=== PATIENT | male | born 2000 | race Caucasian/White ===

== ENCOUNTER 2024-05-23 21:59 | Observation (INO) | payer OTHER, SELFPAY ==
[2024-05-23 22:02] VITALS: BP 145/95; PULSE 83; RESP 16; TEMP 36.1; O2SAT 100; BMI 33.2
--- NOTE | 2024-05-23 22:14 | ED.GENADULT ---
HPI - General Adult General Chief complaint: Abdominal Pain Stated complaint: abdominal pain Time Seen by Provider: 05/23/24 22:07 Source: patient Mode of arrival: ambulatory Limitations: no limitations History of Present Illness HPI narrative: 24-year-old male presenting today with abdominal pain this been going on for 1 week. Patient states that the pain is central on the abdomen and sometimes he feels pain in the left flank. The pain generally comes and goes, his best 1st thing in the morning and gets worse as the day goes on. He is able to eat, eating does make it a bit more uncomfortable. He states that for the last few days he has had loose stools. He states that it occurs once per day but if he ?really tries to then he can have up to 5 bowel movements per day. Urinating normally. He denies any vomiting but has felt nauseated on and off. He denies any fevers or chills. He states that a few years ago he was diagnosed with either colitis or Crohn's, he can not quite remember which 1 it was. He states that he was having abdominal pain at the time and he had a capsule endoscopy and colonoscopy before the diagnosis was made. He denies any blood in his stools. He denies any blood in his urine. Patient does not take any medications. He had a breast surgery for enlarged breast tissue in the past. Patient is very vague about how much he drinks, but states that he drinks approximately 4 times per month. Related Data Allergies Allergy/AdvReac Type Severity Reaction Status Date / Time No Known Drug Allergies Allergy Verified 05/23/24 22:05 Review of Systems Status of ROS: Reports: 10 or more systems reviewed and unremarkable except as noted in History and below Exam Narrative: Exam Narrative: Well-nourished well-developed patient in no acute distress. Alert and oriented. Answers questions appropriately. Mood and affect are appropriate. Thoughts are goal oriented and rational. No tangential or magical thinking noted. Patient speaks in full sentences without needing to catch their breath. HEENT: Normocephalic atraumatic. Pupils are equally round reactive to light. Extraocular muscles are intact. Conjunctivae are moist without any icterus noted. Moist mucous membranes. Posterior pharynx is normal. Neck is soft. Cardiovascular: Heart is regular rate and rhythm S1 and S2 are present without any murmurs. Lungs: Clear to auscultation bilaterally no wheezes rhonchi or rales are appreciated. Patient takes deep breaths without any discomfort. Abdomen: Firm. Patient has a very hard time relaxing his abdominal wall. He has normal bowel sounds. He has a negative Ponce sign. He has no suprapubic discomfort. He has generalized discomfort between the umbilicus in the epigastric region. Extremities: Bilateral lower extremities are without edema. Skin: Well perfused without any obvious rashes. Const: Vital Signs, click to edit/add: Vital Signs - 24 hr 05/23/24 22:02 Temperature 97.0 F L Pulse Rate [Left P ulse Oximeter] 83 Respiratory Rate 16 Blood Pressure [Ri ght Upper Arm] 145/95 H Pulse Oximetry 100 Oxygen Delivery Me thod Room Air Course Course ED Course: Differential diagnoses is broad at this point. Will proceed with blood work. CBC is unremarkable. Chemistries are unremarkable. LFTs are normal. CRP minimally elevated at 2.3. Lipase is elevated at 14 77. UA is normal. Discussed with patient that he has pancreatitis. Will start IVF and admitted for further management. Vital Signs Vital signs: Initial Vital Signs Temperature 97.0 F L 05/23/24 22:02 Temperature Source Temporal Artery Scan 05/23/24 22:02 Pulse Rate 83 05/23/24 22:02 Pulse Rhythm Regular 05/23/24 22:02 Respiratory Rate 16 05/23/24 22:02 Blood Pressure 145/95 H 05/23/24 22:02 Blood Pressure Mean 111 H 05/23/24 22:02 Blood Pressure Position Sitting 05/23/24 22:02 Pulse Oximetry 100 05/23/24 22:02 Oxygen Delivery Method Room Air 05/23/24 22:02 Vital Signs Temperature 97.0 F L 05/23/24 22:02 Pulse Rate 83 05/23/24 22:02 Respiratory Rate 16 05/23/24 22:02 Blood Pressure 145/95 H 05/23/24 22:02 Pulse Oximetry 100 05/23/24 22:02 Oxygen Delivery Method Room Air 05/23/24 22:02 Temperature 97.0 F L 05/23/24 22:02 Pulse Rate 83 05/23/24 22:02 Respiratory Rate 16 05/23/24 22:02 Blood Pressure 145/95 H 05/23/24 22:02 Pulse Oximetry 100 05/23/24 22:02 Oxygen Delivery Method Room Air 05/23/24 22:02 Medical Decision Making MDM Narrative Medical decision making narrative: 24-year-old male with pancreatitis. Will admit for further management. Lab Data Lab results reviewed: Yes I reviewed the patient's lab results Labs: Lab Results 05/23/24 05/23/24 Range/Units 22:22 22:30 WBC 9.84 (4.50-11.00) K/uL RBC 4.52 (4.30-5.90) m/uL Hgb 13.5 (13.5-17.5) gm/dL Hct 40.9 (37.0-53.0) % MCV 91 (80-100) fL MCH 30 (26-34) pg MCHC 33 (32-36) gm/dL RDW Coeff of Agus 12.2 (11.5-15.5) % Plt Count 341 (140-440) K/uL Neut % (Auto) 52.5 (42.0-72.0) % Lymph % (Auto) 30.7 (20-44) % [place] % (Auto) 12.9 H (0.0-11.0) % Eos % (Auto) 3.0 (0.0-7.0) % Baso % (Auto) 0.5 (0.0-3.0) % Neut # (Auto) 5.16 (1.7-7.0) K/uL Lymph # (Auto) 3.02 H (0.90-2.90) K/uL [place] # (Auto) 1.30 H (0.00-0.90) K/UL Eos # (Auto) 0.30 (0.00-0.50) K/uL Baso # (Auto) 0.05 (0.00-0.30) K/uL Abs Immat Gran (auto) 0.04 (0.00-0.30) K/uL Imm/Tot Granulo (auto) 0.4 % Sodium 137 (135-149) mmol/L Potassium 4.4 (3.6-5.1) mmol/L Chloride 101 (96-114) mmol/L Carbon Dioxide 26 (20-32) mmol/L Anion Gap 10 (7-15) mEq/L BUN 10 (5-24) mg/dL Creatinine 0.9 (0.5-1.5) mg/dL Estimated Creat Clear 140.11 Estimated GFR 123 ml/min Glucose 117 H (60-115) mg/dL Lactate 1.2 (0.5-1.9) mmol/L Calcium 9.3 (8.4-10.6) mg/dL Total Bilirubin 0.3 (0.1-1.5) mg/dL Direct Bilirubin 0.3 (0.0-0.5) mg/dL AST 26 (12-35) U/L ALT 29 (4-50) U/L Alkaline Phosphatase 133 (40-150) U/L C-Reactive Protein 2.3 H (0.5-1.0) mg/dL Total Protein 7.9 (6.0-8.3) g/dL Albumin 4.7 (3.3-5.0) g/dL Lipase 1477 H (23-300) U/L Urine Color Yellow (Yellow) Urine Appearance Clear (Clear) Urine pH 7.0 (5.0-8.5) Ur Specific [place] 1.020 (1.000-1.030) Urine Protein Negative (Negative) Urine Glucose (UA) Negative (Negative) Urine Ketones Negative (Negative) Urine Blood Negative (Negative) Urine Nitrite Negative (Negative) Urine Bilirubin Negative (Negative) Urine Urobilinogen 0.2 (0.2-1.0) Ur Leukocyte Esterase Negative (Negative) Urine RBC 0-2 (0-2) Urine WBC 0-2 (0-5) Ur Squamous Epith Cells None (None-Few) Urine Bacteria None (None) Discharge Plan Discharge Clinical Impression: Pancreatitis Patient Disposition: Admitted As Observation Condition: Stable Follow Up/Referrals: Provider,Not a Local [Primary Care Provider] -
[2024-05-23 22:26] LABS: Lactate* 1.2 mmol/L (0.5-1.9)
[2024-05-23 22:27] LABS: Basophils Absolute Auto 0.05 K/uL (0.00-0.30); Basophils Percent Auto 0.5 % (0.0-3.0); Hematocrit 40.9 % (37.0-53.0); Hemoglobin* 13.5 gm/dL (13.5-17.5); Immature Granulocytes Abs Auto 0.04 K/uL (0.00-0.30); Immature Granulocytes Pct Auto 0.4 %; Lymphocytes Absolute Auto 3.02 K/uL (0.90-2.90); Lymphocytes Percent Auto 30.7 % (20-44); Mean Corpuscular HGB Conc 33 gm/dL (32-36); Mean Corpuscular Hemoglobin 30 pg (26-34); Mean Corpuscular Volume 91 fL (80-100); Monocytes Percent Auto 12.9 % (0.0-11.0); Neutrophils Absolute Auto 5.16 K/uL (1.7-7.0); Neutrophils Percent Auto 52.5 % (42.0-72.0); Platelet Count* 341 K/uL (140-440); RDW Coefficient of Variation % 12.2 % (11.5-15.5); Red Blood Count 4.52 m/uL (4.30-5.90); White Blood Count* 9.84 K/uL (4.50-11.00)
[2024-05-23 22:29] LABS: Slide Review Reflex No
[2024-05-23 22:44] LABS: Albumin* 4.7 g/dL (3.3-5.0); Chloride* 101 mmol/L (96-114); Sodium* 137 mmol/L (135-149)
[2024-05-23 22:45] LABS: Potassium* 4.4 mmol/L (3.6-5.1)
[2024-05-23 22:47] LABS: Anion Gap 10 mEq/L (7-15); Aspartate Amino Transferase* 26 U/L (12-35); Bilirubin Direct* 0.3 mg/dL (0.0-0.5); Bilirubin Total* 0.3 mg/dL (0.1-1.5); Carbon Dioxide* 26 mmol/L (20-32); Creatinine* 0.9 mg/dL (0.5-1.5); Est. Creatinine Clearance* 140.11; Estimated Glomerular Filt Rate 123 ml/min
[2024-05-23 22:48] LABS: Alanine Aminotransferase* 29 U/L (4-50); Alkaline Phosphatase* 133 U/L (40-150); Blood Urea Nitrogen* 10 mg/dL (5-24); Calcium* 9.3 mg/dL (8.4-10.6); Glucose* 117 mg/dL (60-115); Lipase* 1477 U/L (23-300); Total Protein* 7.9 g/dL (6.0-8.3)
[2024-05-23 22:49] LABS: Appearance Urine Clear (Clear); Bilirubin Urine Negative (Negative); Blood Urine Negative (Negative); Color Urine Yellow (Yellow); Glucose Urine Negative (Negative); Ketones Urine Negative (Negative); Leukocyte Esterase Urine Negative (Negative); Nitrite Urine Negative (Negative); Protein Urine Negative (Negative); Urobilinogen Urine 0.2 (0.2-1.0)
[2024-05-23 22:50] LABS: C Reactive Protein* 2.3 mg/dL (0.5-1.0)
[2024-05-23 22:58] LABS: RBC Urine 0-2 (0-2); WBC Urine 0-2 (0-5)
[2024-05-23] MEDS: 0.9 % SODIUM CHLORIDE 1000 ml 1,000 ML IV (23:18)
--- NOTE | 2024-05-23 23:23 | ED.NURSE ---
Asked pt to change into a gown and pt states he will wait until he gets to a room to change when he can close a door and have more privacy. This was relayed to Med/manager of software.
[2024-05-23 23:40] VITALS: BP 160/86; PULSE 90; RESP 18; O2SAT 97; BMI 33.2
--- NOTE | 2024-05-23 23:52 | PM.IMHP1 ---
Hospitalist- H&P: HPI History of Present Illness Date Seen: 05/23/24 Chief complaint: abdominal pain Narrative: Deejay Jones is a 24 year old male admitted through the emergency department with a 6 day history of mid abdominal pain. Starting last Saturday he noted he had a crampy mid abdominal pain. The pain does radiate around his abdomen, especially to his left flank. This was made worse by eating. It bothered him less at night. He has not had any vomiting. No fever. He has had nonbloody diarrhea of brown stools 2 to 4 times a day. Also reports some discomfort with urination. A couple days ago he also had chest pain with his abdominal pain. No previous abdominal surgery. A couple years ago he had consultation with Gastroenterology including colonoscopy and was apparently diagnosed with Crohn's colitis. He has not had any follow-up of this and is not on any medication for this. He has had no abdominal surgery. October 29 2023 was seen in [facility] for abdominal pain. Evaluation at that time was unremarkable including a normal abdominal CT and normal labs including lipase. He drinks alcohol 3 or 4 times per month with 2 or 3 drinks on each occasion. Review of Systems Narrative: Review of systems unremarkable except as noted above PFSH [facility] Medical History (Updated 05/24/24 @ 00:07 by Deshawn Yanes MD) Gynecomastia ?N62 - Hypertrophy of breast (ICD-10) Crohn's disease ?K50.90 - Crohn's disease, unspecified, without complications (ICD-10) Family History (Updated 05/24/24 @ 00:02 by Deshawn Yanes MD) Mother Breast cancer Social History (Updated 05/24/24 @ 00:03 by Deshawn Yanes MD) Narrative: He is , 6-month-old son, works as a resistance welder, does not smoke. Does not use recreational drugs. Drinks alcohol 3-4 times per month with 2-3 drinks on each occasion. Meds Home Medications and Allergies Home Medication Comments: None Allergies Allergy/AdvReac Type Severity Reaction Status Date / Time No Known Drug Allergies Allergy Verified 05/23/24 22:05 Exam Narrative: Exam Narrative: He is alert and appears in no distress. He gives his own history. Eyes normal. Oropharynx with small airway. Neck is supple without mass or adenopathy. Respirations are clear to auscultation. Cardiovascular: S1, S2, regular rate and rhythm. Abdomen: Bowel sounds are active. Abdomen is soft with mild to moderate diffuse tenderness more prominent in the mid abdomen and left flank. No mass. No peritonitis. External genitalia normal. Extremities with good perfusion. No edema. No rash. Const: Vital Signs, click to edit/add: Vital Signs - 24 hr 05/23/24 22:02 Temperature 97.0 F L Pulse Rate [Left P ulse Oximeter] 83 Respiratory Rate 16 Blood Pressure [Ri ght Upper Arm] 145/95 H Pulse Oximetry 100 Oxygen Delivery Me thod Room Air Documenting provider has reviewed patient's vital signs: yes Hospitalist - H&P: Result Labs Labs: Short CBC 05/23/24 Range/Units 22:22 WBC 9.84 (4.50-11.00) K/uL Hgb 13.5 (13.5-17.5) gm/dL Hct 40.9 (37.0-53.0) % Plt Count 341 (140-440) K/uL BMP 05/23/24 22:22 Sodium 137 Potassium 4.4 Chloride 101 Carbon Dioxide 26 BUN 10 Creatinine 0.9 Glucose 117 H Calcium 9.3 Liver Function 05/23/24 Range/Units 22:22 Total Bilirubin 0.3 (0.1-1.5) mg/dL Direct Bilirubin 0.3 (0.0-0.5) mg/dL AST 26 (12-35) U/L ALT 29 (4-50) U/L Alkaline Phosphatase 133 (40-150) U/L Albumin 4.7 (3.3-5.0) g/dL Urine 05/23/24 Range/Units 22:30 Urine Color Yellow (Yellow) Urine Appearance Clear (Clear) Urine pH 7.0 (5.0-8.5) Ur Specific [place] 1.020 (1.000-1.030) Urine Protein Negative (Negative) Urine Glucose (UA) Negative (Negative) Assessment and Plan Assessment and plan (1) Pancreatitis: Problem comment: Diagnosis based on 6 days of crampy abdominal pain and elevated lipase. Obtain imaging. Will start with ultrasound of the right upper quadrant. Pain medication. Advance diet as tolerated after ultrasound. Status: Acute Plan Patient is admitted the hospital for additional evaluation of pancreatitis and management of pain and IV fluids. Total Time Spent Total Time Spent: Total time spent today is 60 minutes in evaluation management and discussing with patient and other providers ongoing management of pancreatitis
[2024-05-24] MEDS: LACTATED RINGERS 1000 ML 1,000 ML 125 ML IV (00:08)
[2024-05-24] MEDS: MORPHINE 4 MG/ML INJ 2 MG IVP ×2 (00:09→00:10)
[2024-05-24 00:24] LABS: Cholesterol* 146 mg/dL (90-199)
[2024-05-24 00:25] LABS: HDL Cholesterol* 31 mg/dL (>=40); LDL Cholesterol Calculated 98 mg/dL (<100); Triglycerides* 86 mg/dL (40-149)
[2024-05-24 00:38] LABS: Troponin I* < 0.01 ng/mL (0.01-0.04)
[2024-05-24] MEDS: MORPHINE 4 MG/ML INJ IVP ×5 (00:50→19:53)
[2024-05-24 03:00] VITALS: BP 141/88; PULSE 64; RESP 16; TEMP 37.1; O2SAT 98
--- NOTE | 2024-05-24 06:52 | PC.NURSE ---
End of shift report [id number]: Patient admitted to floor at 2340 with dx of pancreatitis and abdominal pain. Pain to upper abdomen 9/10 upon admission. PRN morphine utilized for pain and effective. Abdomen round, soft but tender to the touch and patient guarding. Per patient report, he has had abdominal pain over the last week that increased in intensity which prompted the visit to the ER. He has had pain like this in the past, intermittent abdominal pain since February 2022. patient has followed up with GI and working on definitive diagnosis. Denies nausea at this time but has had nausea during the last week, no vomiting but did dry heave while nauseated. Reports loose stools over the last several days and has had multiple stools. Difficutly with taking a deep breath as it causing pain in abdomen to increase, pain also intensifies with activity and ambulation. NPO, compliant with current diet and updated with order for imaging in the AM. Mother bedside.
[2024-05-24 08:00] VITALS: BP 137/78; PULSE 64; RESP 16; TEMP 36.6; O2SAT 98
--- NOTE | 2024-05-24 08:00 | CRLHL7_ITS ---
For Patients: As a result of the Century Cures Act, medical imaging exams and procedure reports are released immediately into your electronic medical record. You may view this report before your referring provider. If you have questions, please contact your health care provider. CLINICAL HISTORY: Abdominal pain FINDINGS: Th increased echogenicity of the liver. There is a normal appearance of the hepatic IVC and proximal abdominal aorta. There is no evidence of ascites. The gallbladder is of normal size and there is no evidence of intraluminal stones or sludge. The gallbladder wall measures 2 mm in thickness. The common bile duct is of normal size and measures 4 mm in diameter at the level of the gorge hepatis. The pancreas poorly visualized. The right kidney measures 11 cm. Slight prominence of the right renal pelvis. IMPRESSION: 1. Fatty liver. Pancreas is poorly seen. 2. Slight prominence of the right renal pelvis. Dictated by Angelica Connolly MD @ 05/24/2024 10:09:59 AM (Electronically Signed)
[2024-05-24] MEDS: LACTATED RINGERS 1000 ML 1,000 ML 150 ML IV ×3 (08:09→22:42)
[2024-05-24 11:26] VITALS: BP 143/84; PULSE 67; RESP 16; TEMP 36.7; O2SAT 97
--- NOTE | 2024-05-24 11:26 | CRLHL7_ITS ---
For Patients: As a result of the Century Cures Act, medical imaging exams and procedure reports are released immediately into your electronic medical record. You may view this report before your referring provider. If you have questions, please contact your health care provider. INDICATION: Left lower quadrant pain for 1 week. History of Crohn disease and gynecomastia. TECHNIQUE: Axial intravenously infused CT cuts were performed from above the diaphragm to the below the ischial tuberosities. COMPARISON: None. FINDINGS: There is very mild edema adjacent to the tail of the pancreas (for example see image 55 series 2). There is no pseudocyst or abscess. There is no biliary dilation. The liver, spleen, adrenals and kidneys appear normal. There is no free intraperitoneal air. There is an appendicolith within the appendix. The appendix does not appear inflamed. The colon and small bowel appear normal. The urinary bladder, seminal vesicles and prostate gland appear normal. There is no iliac or inguinal lymphadenopathy. There are no nodules or masses at the lung bases. The mild dependent atelectasis within both lungs. Gynecomastia is incompletely visualized on the left side. There are no lytic or sclerotic skeletal lesions. IMPRESSION: There is very mild edema adjacent to the tail of the pancreas consistent with mild pancreatitis. Please note that all CT scans at this facility use dose modulation, iterative reconstruction, and/or weight-based dosing when appropriate to reduce radiation dose to as low as reasonably achievable. Dictated by Rangel Ball MD @ 05/24/2024 12:39:56 PM (Electronically Signed)
[2024-05-24] MEDS: LACTATED RINGERS 1000 ML 1,000 ML IV (12:01)
--- NOTE | 2024-05-24 12:04 | P.IMPN_ITS ---
Progress Note: A&P Assessment and plan (1) Pancreatitis: Problem details: - Diagnosis based on 6 days of crampy abdominal pain and elevated lipase. Pain medication. - 05/24: RUQ US - no GB disease or cholelithiasis. Pancreas not well visualized. Deejay c/o diffuse abdominal pain, also is tender in LLQ. Will obtain CT abdomen/pelvis. He appears hypovolemic. Will give IVF bolus and increase IVF. Advance to clears also. Status: Acute Subjective Time Seen by Provider: 10:54 Date Seen: 05/24/24 Interval history: Deejay's mother, Maddie, was in the room with him. Deejay notes that he's had this same pain on and off for two years, since getting a benign lump removed from his left breast. He was seen at [facility] in October with normal labs and CT abdomen. He came in this time because the pain usually comes and goes, but this time it stayed constant for 6 days. He says he has not had much urine output yet. He complains of pain and hunger. Exam Narrative: Exam Narrative: General: No acute distress. Awake, alert, oriented. No pallor. No jaundice. Oropharynx: Clear. Mucous membranes dry. Cardiovascular: Regular rate and rhythm. No murmurs, gallops, or rubs. Respiratory: Clear to auscultation bilaterally. No wheezes or crackles. Abdomen: Bowel sounds present. Soft, nondistended, diffusely tender, especially in the left lower quadrant, no rebound tenderness or guarding, no masses. No hepatosplenomegaly. Extremities: No pedal edema. Const: Vital Signs, click to edit/add: Vital Signs - 24 hr 05/23/24 22:02 05/23/24 23:40 05/23/24 23:40 Temperature 97.0 F L Pulse Rate [Left P ulse Oximeter] 83 90 Respiratory Rate 16 18 18 Blood Pressure [Ri ght Arm] 160/86 H Blood Pressure [Ri ght Upper Arm] 145/95 H Pulse Oximetry 100 97 97 Oxygen Delivery Me thod Room Air Room Air Room Air 05/24/24 03:00 05/24/24 08:00 05/24/24 08:00 Temperature 98.7 F 97.9 F Pulse Rate [Left P ulse Oximeter] 64 64 64 Respiratory Rate 16 16 16 Blood Pressure [Ri ght Arm] 141/88 H 137/78 [facility] Pulse Oximetry 98 98 Oxygen Delivery Me thod Room Air Room Air Labs Labs: Laboratory Results - last 24 hr 05/23/24 05/23/24 05/23/24 22:22 22:30 23:17 WBC 9.84 RBC 4.52 Hgb 13.5 Hct 40.9 MCV 91 MCH 30 MCHC 33 RDW Coeff of Agus 12.2 Plt Count 341 Neut % (Auto) 52.5 Lymph % (Auto) 30.7 [place]ie % (Auto) 12.9 H Eos % (Auto) 3.0 Baso % (Auto) 0.5 Neut # (Auto) 5.16 Lymph # (Auto) 3.02 H Bertie # (Auto) 1.30 H Eos # (Auto) 0.30 Baso # (Auto) 0.05 Abs Immat Gran (auto) 0.04 Imm/Tot Granulo (auto) 0.4 Sodium 137 Potassium 4.4 Chloride 101 Carbon Dioxide 26 Anion Gap 10 BUN 10 Creatinine 0.9 Estimated Creat Clear 140.11 Estimated GFR 123 Glucose 117 H Lactate 1.2 Calcium 9.3 Total Bilirubin 0.3 Direct Bilirubin 0.3 AST 26 ALT 29 Alkaline Phosphatase 133 Troponin I < 0.01 L C-Reactive Protein 2.3 H Total Protein 7.9 Albumin 4.7 Triglycerides 86 Cholesterol 146 LDL Cholesterol, Calc 98 HDL Cholesterol 31 L Lipase 1477 H Urine Color Yellow Urine Appearance Clear Urine pH 7.0 Ur Specific [place] 1.020 Urine Protein Negative Urine Glucose (UA) Negative Urine Ketones Negative Urine Blood Negative Urine Nitrite Negative Urine Bilirubin Negative Urine Urobilinogen 0.2 Ur Leukocyte Esterase Negative Urine RBC 0-2 Urine WBC 0-2 Ur Squamous Epith Cells None Urine Bacteria None Lab Acknowledgement Test Added 05/23/24 23:56 WBC RBC Hgb Hct MCV MCH MCHC RDW Coeff of Agus Plt Count Neut % (Auto) Lymph % (Auto) Bertie % (Auto) Eos % (Auto) Baso % (Auto) Neut # (Auto) Lymph # (Auto) Bertie # (Auto) Eos # (Auto) Baso # (Auto) Abs Immat Gran (auto) Imm/Tot Granulo (auto) Sodium Potassium Chloride Carbon Dioxide Anion Gap BUN Creatinine Estimated Creat Clear Estimated GFR Glucose Lactate Calcium Total Bilirubin Direct Bilirubin AST ALT Alkaline Phosphatase Troponin I C-Reactive Protein Total Protein Albumin Triglycerides Cholesterol LDL Cholesterol, Calc HDL Cholesterol Lipase Urine Color Urine Appearance Urine pH Ur Specific [place] Urine Protein Urine Glucose (UA) Urine Ketones Urine Blood Urine Nitrite Urine Bilirubin Urine Urobilinogen Ur Leukocyte Esterase Urine RBC Urine WBC Ur Squamous Epith Cells Urine Bacteria Lab Acknowledgement Test Added Ordering Physician: Deshawn Yanes M.D. Date of Service: 05/24/24 Procedure(s): US abdomen limited Accession Number(s): [id number] cc: Deshawn Yanes M.D.; Provider,Not a Local~ For Patients: As a result of the Cures Act, medical imaging exams and procedure reports are released immediately into your electronic medical record. You may view this report before your referring provider. If you have questions, please contact your health care provider. CLINICAL HISTORY: Abdominal pain FINDINGS: Th increased echogenicity of the liver. There is a normal appearance of the hepatic IVC and proximal abdominal aorta. There is no evidence of ascites. The gallbladder is of normal size and there is no evidence of intraluminal stones or sludge. The gallbladder wall measures 2 mm in thickness. The common bile duct is of normal size and measures 4 mm in diameter at the level of the gorge hepatis. The pancreas poorly visualized. The right kidney measures 11 cm. Slight prominence of the right renal pelvis. IMPRESSION: 1. Fatty liver. Pancreas is poorly seen. 2. Slight prominence of the right renal pelvis. Dictated by Angelica Connolly MD @ 05/24/2024 10:09:59 AM (Electronically Signed)
[2024-05-24 16:15] VITALS: BP 135/72; PULSE 62; RESP 16; TEMP 37; O2SAT 96
[2024-05-24 19:00] VITALS: BP 136/91; PULSE 87; RESP 18; TEMP 37.2; O2SAT 98
--- NOTE | 2024-05-24 19:48 | PC.NURSE ---
Pt up independently in room. Clear liquid diet started after ultrasound and CT results showed mild pancreatitis. Pt moderatly tolerated clear lunch, with increased pain after jello and chicken broth. See MAR for medication management. Fluids running with a bolus due to low urine output, see MAR. Pt educated on plan and importance of establishing a PCP and follow up.
[2024-05-24] MEDS: SODIUM CHLORIDE 0.9 % (FLUSH) 10 ML SYRINGE 5 ML IVF (19:54)
[2024-05-24 23:00] VITALS: PULSE 87; RESP 16; RESP 18
[2024-05-25 03:00] VITALS: BP 139/69; PULSE 81; RESP 16; TEMP 37.7; O2SAT 97
[2024-05-25] MEDS: MORPHINE 4 MG/ML INJ IVP ×2 (03:06→05:08)
[2024-05-25] MEDS: SODIUM CHLORIDE 0.9 % (FLUSH) 10 ML SYRINGE 5 ML IVF (03:07)
[2024-05-25] MEDS: LACTATED RINGERS 1000 ML 1,000 ML 150 ML IV (05:08)
--- NOTE | 2024-05-25 06:44 | PC.NURSE ---
End of shift report [id number]: Pleasant and cooperative with cares. Continues to report intermittent abdominal pain, states that pain increases with activity. Tolerated clear liquid diet without difficulty, patient requesting more substantial food, personal lines underwriter discussed with Dr. Yanes, new order to advance as tolerated and educate patient on avoiding high fat or fried foods. Tolerated full liquid diet without increased pain, nausea or vomiting. Advanced to regular diet and patient tolerated well. Education on eating slowly and small amounts as well as avoiding foods that are high in fat or fried to reduce GI discomfort, verbalized understanding.
--- NOTE | 2024-05-25 08:20 | PM.DS1 ---
DS: Providers Provider Time Seen by Provider: 07:50 Date Seen: 05/25/24 Date of admission: 05/23/24 23:37 Primary care physician: Not a Local Provider Admitting Clinician: Deshawn Yanes MD Attending Physician on discharge: Claudette Hwang MD Date of Discharge: 05/25/24 DS: Diagnosis Discharge Diagnosis (1) Pancreatitis: Status: Acute Problem details: - Diagnosis based on 6 days of crampy abdominal pain and elevated lipase. Pain medication. - 05/24: RUQ US - no GB disease or cholelithiasis. Pancreas not well visualized. Deejay c/o diffuse abdominal pain, also is tender in LLQ. Will obtain CT abdomen/pelvis. He appears hypovolemic. Will give IVF bolus and increase IVF. Advance to clears also. - 05/25 advanced diet last night. Tolerating regular diet and ambulation today without increased pain. Pain less than yesterday. (2) Crohn's disease: Status: Suspected Problem details: - This was diagnosed the April 2022. Details of the diagnosis unclear. Patient is not on treatment for this. - LLQ pain intermittently for [address] abd/pelvis 05/24 showed only mild pancreatitis, no concerning areas of bowel dz. DS: Summary Hospital Course Hospital Course: Per H&P: Deejay Jones is a 24 year old male admitted through the emergency department with a 6 day history of mid abdominal pain. Starting last Saturday he noted he had a crampy mid abdominal pain. The pain does radiate around his abdomen, especially to his left flank. This was made worse by eating. It bothered him less at night. He has not had any vomiting. No fever. He has had nonbloody diarrhea of brown stools 2 to 4 times a day. Also reports some discomfort with urination. A couple days ago he also had chest pain with his abdominal pain. No previous abdominal surgery. A couple years ago he had consultation with Gastroenterology including colonoscopy and was apparently diagnosed with Crohn's colitis. He has not had any follow-up of this and is not on any medication for this. He has had no abdominal surgery. October 29 2023 was seen in [facility] for abdominal pain. Evaluation at that time was unremarkable including a normal abdominal CT and normal labs including lipase. He drinks alcohol 3 or 4 times per month with 2 or 3 drinks on each occasion. Triglycerides wnl. GB US and CT abd unremarkable except for mild pancreatitis. Patient advanced diet without difficulty and pain is improving. His mother, Maddie, has been in the room with him each day I've seen him. I discussed my recommendations with them, which include to establish primary care and to visit regarding ongoing intermittent LLQ pain; obtain records from GI visit in 2021. May benefit from referral back to GI. Avoid alcohol until discussion with PCP or GI regarding pancreatitis since no other cause was found. Time Spent with Patient Time attestation: Total time spent providing and/or coordinating discharge services: Exam Narrative: Exam Narrative: General: No acute distress. Awake, alert, oriented. No pallor. No jaundice. Oropharynx: Clear. Mucous membranes moist. Cardiovascular: Regular rate and rhythm. No murmurs, gallops, or rubs. Respiratory: Clear to auscultation bilaterally. No wheezes or crackles. Abdomen: Bowel sounds present. Soft, nondistended, nontender. Extremities: No pedal edema. Const: Vital Signs, click to edit/add: Vital Signs - 24 hr 05/24/24 11:26 05/24/24 16:15 05/24/24 19:00 Temperature 98.1 F 98.6 F 98.9 F Pulse Rate [Left P ulse Oximeter] 67 62 87 Respiratory Rate 16 16 18 Blood Pressure [Ri ght Arm] 143/84 H 135/72 136/91 H Pulse Oximetry 97 96 98 Oxygen Delivery Me thod Room Air Room Air Room Air 05/24/24 23:00 05/24/24 23:00 05/25/24 03:00 Temperature 99.8 F H Pulse Rate [Left P ulse Oximeter] 87 81 Respiratory Rate 18 16 16 Blood Pressure [Ri ght Arm] 139/69 Pulse Oximetry 97 Oxygen Delivery Me thod Room Air DS: Data Data Completed and Pending Completed studies during hospitalization: Ordering Physician: Deshawn Yanes M.D. Date of Service: 05/24/24 Procedure(s): US abdomen limited Accession Number(s): [id number] cc: Deshawn Yanes M.D.; Provider,Not a Local~ For Patients: As a result of the Cures Act, medical imaging exams and procedure reports are released immediately into your electronic medical record. You may view this report before your referring provider. If you have questions, please contact your health care provider. CLINICAL HISTORY: Abdominal pain FINDINGS: Th increased echogenicity of the liver. There is a normal appearance of the hepatic IVC and proximal abdominal aorta. There is no evidence of ascites. The gallbladder is of normal size and there is no evidence of intraluminal stones or sludge. The gallbladder wall measures 2 mm in thickness. The common bile duct is of normal size and measures 4 mm in diameter at the level of the gorge hepatis. The pancreas poorly visualized. The right kidney measures 11 cm. Slight prominence of the right renal pelvis. IMPRESSION: 1. Fatty liver. Pancreas is poorly seen. 2. Slight prominence of the right renal pelvis. Dictated by Angelica Connolly MD @ 05/24/2024 10:09:59 AM (Electronically Signed) Ordering Physician: Claudette Hwang M.D. Date of Service: 05/24/24 Procedure(s): CT abdomen pelvis w con Accession Number(s): [id number] cc: Claudette Hwang M.D.; Provider,Not a Local~ For Patients: As a result of the Century Cures Act, medical imaging exams and procedure reports are released immediately into your electronic medical record. You may view this report before your referring provider. If you have questions, please contact your health care provider. INDICATION: Left lower quadrant pain for 1 week. History of Crohn disease and gynecomastia. TECHNIQUE: Axial intravenously infused CT cuts were performed from above the diaphragm to the below the ischial tuberosities. COMPARISON: None. FINDINGS: There is very mild edema adjacent to the tail of the pancreas (for example see image 55 series 2). There is no pseudocyst or abscess. There is no biliary dilation. The liver, spleen, adrenals and kidneys appear normal. There is no free intraperitoneal air. There is an appendicolith within the appendix. The appendix does not appear inflamed. The colon and small bowel appear normal. The urinary bladder, seminal vesicles and prostate gland appear normal. There is no iliac or inguinal lymphadenopathy. There are no nodules or masses at the lung bases. The mild dependent atelectasis within both lungs. Gynecomastia is incompletely visualized on the left side. There are no lytic or sclerotic skeletal lesions. IMPRESSION: There is very mild edema adjacent to the tail of the pancreas consistent with mild pancreatitis. Please note that all CT scans at this facility use dose modulation, iterative reconstruction, and/or weight-based dosing when appropriate to reduce radiation dose to as low as reasonably achievable. Dictated by Rangel Ball MD @ 05/24/2024 12:39:56 PM (Electronically Signed) Labs on day of discharge: Labs from last 24 hours 05/25/24 07:54 Lipase Pending Preliminary micro results at discharge 05/23/24 22:30 Urine Culture - Preliminary Urine,Clean Catch < 10,000 COL/ML MIXED GRAM POSITIVE SOLANGE ISOLATED NO FURTHER WORKUP Discharge Plan Discharge Disposition: Home, Self-Care Date of Admission: 05/23/24 23:37 Attending Provider on Discharge: Claudette Hwang Primary Care Provider: Provider,Not a Local Condition: Stable Anticipated Discharge Date/Time: 05/25/24 10:29 Discharge Orders: Discharge Order (Routine); Ordered 05/25/24 Ordered By: Claudette Hwang Additional Instructions: Avoid alcohol until seen by PCP. Activity Level: No Restrictions Discharge Diet: Regular Follow Up Appointments: Provider,Not a Local [Primary Care Provider] - (5-7 days) Forms: [place] Info Instructions
[2024-05-25 08:33] LABS: Lipase* 642 U/L (23-300)
[2024-05-25 09:00] VITALS: BP 143/76; PULSE 79; RESP 18; TEMP 36.7; O2SAT 96
--- NOTE | 2024-05-25 09:52 | NUTR.NU ---
RDN with diet education related to pancreatitis. Patient admitted for about 6 days prior to arrival of abdominal pain and brown stools 2 to 4 times a day. He was found to have pancreatitis. Past medical history includes Gynecomastia and Crohn's disease, however he has not followed up with GI related to Crohn's disease diagnosis. He is also not on any medications. Current weight 242lb 12.8oz; height 6ft; BMI 32.9 kg/m2. No weight history to assess. RDN visited with patient and mother (Maddie, designated caregiver) whom reports his appetite has been improving. He ate breakfast this morning and is tolerating. He reports a stable weight recently. RDN offered diet education on low fat diet related to pancreatitis. Patient agreed with designated caregiver present. Patient was provided diet education on a low fat diet. Discussed foods to include and foods to avoid until MD recommends advancing to regular diet. Education also provided on reading food labels and avoiding foods of 3 g fat or more for the next ~2 weeks. Verbal and written information as well as sample menu from [facility]. Patient verbalized understanding. RDN's contact information was provided and patient was encouraged to contact RDN with questions.
--- NOTE | 2024-05-25 10:56 | PC.NURSE ---
Pt eating regular diet breakfast. Denies increased pain after meal. Up to walk in [place]. Pt states he feels comfortable with DC plan and will follow up with PCP in 1 week.
--- NOTE | 2024-05-25 11:52 | PC.NURSE ---
pt's iv dc'd, catheter intact. Pt friendly and cooperative, mother with him at bedside. Reviewed discharge instructions, pt and his mother verbalized understanding. He was discharged to home independently alongside his mother at 11:53.
== END 2024-05-25 11:54 | disposition home or self-care (01) ==
LOC: ED 23:11 → MEDSURG 23:39
PROVIDERS: Physician Assistant; Admitting Provider Family Medicine; Emergency Provider Family Medicine; Visit Provider Family Medicine
DX: K85.90 Acute pancreatitis without necrosis or infection, unspecified (principal); R74.8 Abnormal levels of other serum enzymes; R79.82 Elevated C-reactive protein (CRP); R19.7 Diarrhea, unspecified; R39.198 Other difficulties with micturition; R10.32 Left lower quadrant pain; K76.0 Fatty (change of) liver, not elsewhere classified; K50.90 Crohn's disease, unspecified, without complications
CPT/HCPCS: 36415; 74177; 76705; 80048; 80061; 80076; 81001; 83605; 83690; 84484; 85025; 86140; 87086; 96361; 96374; 96376; 99284; 99285; G0378; J2270; J7030; J7120; Q9967

== ENCOUNTER 2024-06-01 11:37 | Emergency (ER) | payer OTHER, SELFPAY ==
[2024-06-01 11:42] VITALS: BP 145/80; PULSE 106; RESP 18; TEMP 36.4; O2SAT 99; BMI 31.7
[2024-06-01 12:27] LABS: Appearance Urine Clear (Clear); Bilirubin Urine Negative (Negative); Blood Urine Negative (Negative); Color Urine Yellow (Yellow); Glucose Urine Negative (Negative); Ketones Urine Negative (Negative); Leukocyte Esterase Urine Negative (Negative); Nitrite Urine Negative (Negative); Protein Urine Negative (Negative); Specific Gravity Urine 1.025 (1.000-1.030); Urobilinogen Urine 0.2 (0.2-1.0)
[2024-06-01 12:35] LABS: Basophils Absolute Auto 0.07 K/uL (0.00-0.30); Basophils Percent Auto 0.7 % (0.0-3.0); Eosinophils Absolute Auto 0.16 K/uL (0.00-0.50); Eosinophils Percent Auto 1.6 % (0.0-7.0); Hematocrit 42.4 % (37.0-53.0); Immature Granulocytes Abs Auto 0.03 K/uL (0.00-0.30); Immature Granulocytes Pct Auto 0.3 %; Lymphocytes Percent Auto 16.2 % (20-44); Mean Corpuscular HGB Conc 33 gm/dL (32-36); Mean Corpuscular Hemoglobin 30 pg (26-34); Mean Corpuscular Volume 90 fL (80-100); Monocytes Percent Auto 8.5 % (0.0-11.0); Neutrophils Percent Auto 72.7 % (42.0-72.0); Platelet Count* 369 K/uL (140-440); Red Blood Count 4.69 m/uL (4.30-5.90)
--- NOTE | 2024-06-01 12:38 | ED.GENADULT ---
HPI - General Adult General Date Seen: 06/01/24 Chief complaint: GI Bleed Stated complaint: Abdominal pain seen last wk w/pancreatitis Time Seen by Provider: 06/01/24 11:48 Source: patient Mode of arrival: ambulatory Limitations: no limitations History of Present Illness HPI narrative: Patient is a 24-year-old young man here for evaluation of diarrhea which has become bloody. He notes he has had diarrhea on and off for couple of years, he was seen by GI at some point and had a colonoscopy. He says that he was told he may be had Crohn's disease although it does not sound like the diagnosis was definitive. He has never had any treatment for that. Last week he was here with abdominal pain, had an elevated lipase and a little bit of inflammation suspicious for pancreatitis. Was admitted to the hospital, improved with supportive care. He had a negative ultrasound, no gallstones, and had normal triglycerides. Etiology for pancreatitis was thought to be possibly related to alcohol although he says he drinks pretty rarely, few times a month, a couple drinks at a time. He says for the past 5 days or so he has been having diarrhea pretty consistently throughout the day. He estimates he has had 50 diarrheal stools over the past 5 days. He has seen some blood yesterday and today. Abdominal pain feels more lower than upper now. No fevers. Denies any recent antibiotics, travel, unusual water sources. He does have some perianal pain with bowel movements now, he suspects this is because of the frequency of his bowel movements and the skin being irritated. Related Data Home Medications ?Medication ?Instructions ?Recorded ?Confirmed No Known Home Medications 06/01/24 06/01/24 Allergies Allergy/AdvReac Type Severity Reaction Status Date / Time No Known Drug Allergies Allergy Verified 05/24/24 12:08 Review of Systems Status of ROS: Reports: 10 or more systems reviewed and unremarkable except as noted in History and below [facility] Medical History Gynecomastia ?N62 - Hypertrophy of breast (ICD-10) Crohn's disease ?K50.90 - Crohn's disease, unspecified, without complications (ICD-10) Family History Mother Breast cancer Social History Narrative: He is , 6-month-old son, works as a electric welder helper, does not smoke. Does not use recreational drugs. Drinks alcohol 3-4 times per month with 2-3 drinks on each occasion. What is your current living situation?: I presently have a place to live Problems where you live: no known problems Problems where you live details: na In the past 12 months, utilities in danger of being shut off: no In past 12 months, lack of transportation kept you from medical appts, meetings, work, or getting things needed for daily living: no In the past 12 mos, have been you worried that your food would run out before you had money to buy more?: never true In the past 12 mos, the food you bought just didn't last and you didn't have money to buy more?: never true Highest level of school completed/degree received: Associate degree: occupational, technical, vocational program Smoking Status: Never smoker Second hand tobacco smoke exposure: No How often do you have a drink containing alcohol: 2-4 times a month How many standard drinks containing alcohol do you have on a typical day: 1 or 2 How often do you have six or more drinks on one occasion: Less than monthly AUDIT-C Alcohol total score: 3 Non-prescribed substance use: denies use Caffeine: Yes How often does anyone, including family, friends and others, physically hurt you: never How often does anyone, including family, friends and others, insult or talk down to you: never How often does anyone, including family, friends and others, threaten you with harm: never How often does anyone, including family, friends and others, scream or curse at you: never Exam Narrative: Exam Narrative: Vital signs as noted above. In general, an alert, well-appearing patient. Head: Normocephalic, atraumatic. Eyes: Pupils are equal reactive. Extraocular movements are full. Conjunctivae are normal. ENT: Mucous membranes are moist. Throat is normal. Neck: Supple without lymphadenopathy. Heart: Regular rate and rhythm. No murmur or rub. Lungs: Clear bilaterally. No increased work of breathing, crackles or wheezes. Abdomen: Soft and nontender. No organomegaly. Extremities: Well perfused. No edema. No calf tenderness. Pulses intact. Neurologic: Patient is alert and oriented to person and place. Speech is fluent. Face is symmetric. Moves all extremities equally. Affect: Normal. Skin: Warm and dry. Well perfused. Const: Vital Signs, click to edit/add: Vital Signs - 24 hr 06/01/24 11:42 Temperature 97.5 F L Pulse Rate [Right Pulse Oximeter] 106 H Respiratory Rate 18 Blood Pressure [Ri ght Upper Arm] 145/80 H Pulse Oximetry 99 Oxygen Delivery Me thod Room Air Documenting provider has reviewed patient's vital signs: yes Course Course ED Course: Records are reviewed. Due to shortage is with IV fluids, will see how labs look and hold off on IV fluids for now. He was mildly tachycardic when he came in but abdominal exam is benign, blood pressure solid, and he may be able to stop orally hydrate. Diagnostic considerations would include inflammatory bowel disease, anal fissure or hemorrhoids, colitis, gastroenteritis among others. Labs are all reassuring. White blood cell count is 9.7, hemoglobin is 14. Metabolic panel is normal, lipase was 294. His CRP is elevated at 5.4. LFTs are normal. Urinalysis is unremarkable. Stool sample was positive for occult blood, C diff negative. I have reviewed all this with him. I think it is reasonable to let him hydrate orally given his labs. I have reviewed all of his recent records. A clear cause for his pancreatitis was not really found aside from maybe being related to alcohol, but he maintains that he is not heavy drinker. I do strongly question whether his symptoms might be related to Crohn's disease. I have discussed with him that I think he needs GI follow-up to have that question answered more definitively. He seems upset by the fact that I am recommending referral to GI, he says he has already seen them and they did not do anything. I have tried to explain to him that I think the question simply was not fully answered previously, he says that he was told that he might have Crohn's and that he should be fine, but given that he is in fact not fine we need to [place] back and look at that question again. I am going to treat him with a course of steroids and see if he feels improved. He has an appointment with his primary care doctor tomorrow. He should keep that appointment, I have also given him the phone number for [facility] so that he can schedule with Dr. Booth. For severe abdominal pain, high fevers, significant bloody stools return any time. Otherwise outpatient follow-up and medications as above, prednisone given from [facility]. Vital Signs Vital signs: Initial Vital Signs Temperature 97.5 F L 06/01/24 11:42 Temperature Source Temporal Artery Scan 06/01/24 11:42 Pulse Rate 106 H 06/01/24 11:42 Respiratory Rate 18 06/01/24 11:42 Blood Pressure 145/80 H 06/01/24 11:42 Blood Pressure Mean 101 06/01/24 11:42 Blood Pressure Position Sitting 06/01/24 11:42 Pulse Oximetry 99 06/01/24 11:42 Oxygen Delivery Method Room Air 06/01/24 11:42 Vital Signs Temperature 97.5 F L 06/01/24 11:42 Pulse Rate 106 H 06/01/24 11:42 Respiratory Rate 18 06/01/24 11:42 Blood Pressure 145/80 H 06/01/24 11:42 Pulse Oximetry 99 06/01/24 11:42 Oxygen Delivery Method Room Air 06/01/24 11:42 Temperature 97.5 F L 06/01/24 11:42 Pulse Rate 106 H 06/01/24 11:42 Respiratory Rate 18 06/01/24 11:42 Blood Pressure 145/80 H 06/01/24 11:42 Pulse Oximetry 99 06/01/24 11:42 Oxygen Delivery Method Room Air 06/01/24 11:42 Medical Decision Making Lab Data Labs: Lab Results 06/01/24 06/01/24 Range/Units 12:18 12:25 WBC 9.70 (4.50-11.00) K/uL RBC 4.69 (4.30-5.90) m/uL Hgb 14.0 (13.5-17.5) gm/dL Hct 42.4 (37.0-53.0) % MCV 90 (80-100) fL MCH 30 (26-34) pg MCHC 33 (32-36) gm/dL RDW Coeff of Agus 12.0 (11.5-15.5) % Plt Count 369 (140-440) K/uL Neut % (Auto) 72.7 H (42.0-72.0) % Lymph % (Auto) 16.2 L (20-44) % [place] % (Auto) 8.5 (0.0-11.0) % Eos % (Auto) 1.6 (0.0-7.0) % Baso % (Auto) 0.7 (0.0-3.0) % Neut # (Auto) 7.10 H (1.7-7.0) K/uL Lymph # (Auto) 1.60 (0.90-2.90) K/uL [place] # (Auto) 0.80 (0.00-0.90) K/UL Eos # (Auto) 0.16 (0.00-0.50) K/uL Baso # (Auto) 0.07 (0.00-0.30) K/uL Abs Immat Gran (auto) 0.03 (0.00-0.30) K/uL Imm/Tot Granulo (auto) 0.3 % Sodium 137 (135-149) mmol/L Potassium 4.3 (3.6-5.1) mmol/L Chloride 101 (96-114) mmol/L Carbon Dioxide 26 (20-32) mmol/L Anion Gap 10 (7-15) mEq/L BUN 8 (5-24) mg/dL Creatinine 0.9 (0.5-1.5) mg/dL Estimated Creat Clear 140.11 Estimated GFR 123 ml/min Glucose 103 (60-115) mg/dL Calcium 9.4 (8.4-10.6) mg/dL Magnesium 2.0 (1.5-2.6) mg/dL Total Bilirubin 0.8 (0.1-1.5) mg/dL Direct Bilirubin 0.3 (0.0-0.5) mg/dL AST 25 (12-35) U/L ALT 32 (4-50) U/L Alkaline Phosphatase 98 (40-150) U/L C-Reactive Protein 5.4 H (0.5-1.0) mg/dL Total Protein 8.1 (6.0-8.3) g/dL Albumin 4.7 (3.3-5.0) g/dL Lipase 294 (23-300) U/L Urine Color Yellow (Yellow) Urine Appearance Clear (Clear) Urine pH 6.0 (5.0-8.5) Ur Specific Holder 1.025 (1.000-1.030) Urine Protein Negative (Negative) Urine Glucose (UA) Negative (Negative) Urine Ketones Negative (Negative) Urine Blood Negative (Negative) Urine Nitrite Negative (Negative) Urine Bilirubin Negative (Negative) Urine Urobilinogen 0.2 (0.2-1.0) Ur Leukocyte Esterase Negative (Negative) Urine RBC 0-2 (0-2) Urine WBC 2-5 (0-5) Ur Squamous Epith Cells Few (None-Few) Urine Bacteria Few A (None) Stool Occult Blood Positive (Negative) Stl C. diff Tox B Gene Negative (Negative) Stl C. diff [id number] PRESUMPTIVE NEGATIVE (Negative) Discharge Plan Discharge Clinical Impression: Chronic diarrhea Patient Disposition: Home, Self-Care Condition: Stable Instructions: Acute Diarrhea (ED) Additional Instructions: Prednisone taper as follows: 3 tablets daily for 3 days, then 2 tablets daily for 3 days, then 1 tablet daily for 3 days. Follow-up with your primary care doctor tomorrow as planned. I would recommend GI follow-up as I think the question of whether not you have Crohn's disease needs to be answered more definitively. A diagnosis of Crohn's disease would explain both your bloody stools and your recent pancreatitis. You can call the [facility] here in [facility], , to schedule an appointment with Dr. Booth. Return at any time for significant abdominal pain, high fevers, or other worsening. Prescriptions: No Action No Known Home Medications Follow Up/Referrals: James Chaves PA-C [Primary Care Provider] - Stand Alone Forms: [employer] Info Instructions
[2024-06-01 12:47] LABS: Fecal Occult Blood* Positive (Negative)
[2024-06-01 12:49] LABS: Slide Review Reflex No
[2024-06-01 12:49] LABS: Bacteria Urine Few; RBC Urine 0-2 (0-2); Squamous Epithelial Cell Urine Few (None-Few)
[2024-06-01 12:59] LABS: Albumin* 4.7 g/dL (3.3-5.0); Chloride* 101 mmol/L (96-114)
[2024-06-01 13:00] LABS: Potassium* 4.3 mmol/L (3.6-5.1); Sodium* 137 mmol/L (135-149)
[2024-06-01 13:02] LABS: Anion Gap 10 mEq/L (7-15); Aspartate Amino Transferase* 25 U/L (12-35); Bilirubin Direct* 0.3 mg/dL (0.0-0.5); Bilirubin Total* 0.8 mg/dL (0.1-1.5); Carbon Dioxide* 26 mmol/L (20-32); Creatinine* 0.9 mg/dL (0.5-1.5); Est. Creatinine Clearance* 140.11; Estimated Glomerular Filt Rate 123 ml/min; Total Protein* 8.1 g/dL (6.0-8.3)
[2024-06-01 13:03] LABS: Alanine Aminotransferase* 32 U/L (4-50); Alkaline Phosphatase* 98 U/L (40-150); Blood Urea Nitrogen* 8 mg/dL (5-24); Calcium* 9.4 mg/dL (8.4-10.6); Glucose* 103 mg/dL (60-115); Lipase* 294 U/L (23-300)
[2024-06-01 13:05] LABS: C Reactive Protein* 5.4 mg/dL (0.5-1.0)
[2024-06-01 13:13] LABS: C.Difficile Negative (Negative); CDIFFEPI 027 PRESUMPTIVE NEGATIVE (Negative)
== END 2024-06-01 13:41 | disposition home or self-care (01) ==
PROVIDERS: Emergency Provider Emergency Medicine; PCP Physician Assistant Medical
DX: R19.7 Diarrhea, unspecified (principal)
CPT/HCPCS: 36415; 80048; 80076; 81001; 82270; 83690; 83735; 85025; 86140; 87045; 87046; 87077; 87086; 87427; 87493; 99283; 99284